=== PATIENT | male | born 1995 | race Caucasian/White ===

== ENCOUNTER 2020-09-07 12:53 | Outpatient (REF) | payer BC, SELFPAY ==
[2020-09-07 14:03] LABS: MANUAL DIFF FLAG NO
[2020-09-07 14:08] LABS: Basophils Percent Auto 0.5 % (0-2); Eosinophils Absolute Auto 0.1 X10*3/uL (0.0-0.4); Hematocrit 43.7 % (42-52); Hemoglobin 14.5 g/dl (14.0-18.0); Lymphocytes Absolute Auto 2.3 X10*3/uL (1.2-4.9); Lymphocytes Percent Auto 38.5 % (20-40); Mean Corpuscular HGB Conc 33.2 g/dl (31.0-36.0); Mean Corpuscular Hemoglobin 30.9 pg (27.0-33.0); Mean Platelet Volume 10.9 fL (9.4-12.4); Monocytes Absolute Auto 0.6 X10*3/uL (0.1-1.2); Monocytes Percent Auto 10.5 % (2-11); Neutrophils Absolute Auto 2.9 X10*3/uL (2.0-8.3); Neutrophils Percent Auto 49.5 % (45-73); Platelet Count 252 X10*3/uL (160-400); Red Cell Distribution Width 12.2 % (11.0-16.0); White Blood Count 5.9 X10*3/uL (4.8-10.8)
[2020-09-07 14:13] LABS: Glucose Urine UA NEG (NEG); Leukocyte Esterase Urine NEG (NEG); Nitrite Urine NEG (NEG); Specific Gravity - Urine >= 1.030 (1.005-1.025); Urine Blood NEG (NEG); Urine Ketones 15 MG/DL (NEG); Urine Protein 1+ MG/DL (NEG-TRACE)
[2020-09-07 14:17] LABS: Appearance Urine HAZY; Color Urine YELLOW
[2020-09-07 14:33] LABS: Alanine Aminotransferase 49 U/L (0-40); Albumin Level 4.7 g/dL (3.5-5.0); Alkaline Phosphatase 74 U/L (39-117); Anion Gap 14 (12-20); Aspartate Amino Transferase 36 U/L (5-37); Blood Urea Nitrogen 16 mg/dL (9-16); Calcium 9.4 mg/dL (8.4-10.2); Carbon Dioxide 26 mmol/L (22-29); Chloride 105 mmol/L (96-108); Estimated Glomerular Filt Rate > 60; Glucose Random 84 mg/dL (60-115); Potassium 3.8 mmol/L (3.3-5.1); Sodium 141 mmol/L (135-145); Total Protein 7.4 g/dL (6.5-8.0)
[2020-09-07 14:34] LABS: Mucus Urine 3+ /LPF; WBC Urine 0 /HPF (0-4)
== END 2020-09-07 12:54 | disposition home or self-care (01) ==
LOC: HO.HMGCLDS 12:53
PROVIDERS: PCP Nurse Practitioner Family; Visit Provider Hospitalist
DX: R82.90 Unspecified abnormal findings in urine (principal)
CPT/HCPCS: 36415; 80053; 81001; 81003; 85025

== ENCOUNTER 2020-09-15 10:11 | Outpatient (REF) | payer BC, SELFPAY ==
[2020-09-15 11:12] LABS: Glucose Urine UA NEG (NEG); Leukocyte Esterase Urine NEG (NEG); Nitrite Urine NEG (NEG); PH 6.5 (5.0-8.0); Urine Blood NEG (NEG); Urine Ketones NEG (NEG); Urine Protein NEG (NEG-TRACE)
[2020-09-15 11:14] LABS: Appearance Urine CLEAR; Color Urine YELLOW
[2020-09-15 11:43] LABS: RBC Urine 0-2 /HPF (0); WBC Urine 0-2 /HPF (0-4)
[2020-09-17 09:28] LABS: Urine Cytology See Pathology rpt
== END 2020-09-15 10:12 | disposition home or self-care (01) ==
LOC: HO.HMGCLDS 10:11
PROVIDERS: PCP Nurse Practitioner Family; Visit Provider Nurse Practitioner Family
DX: R82.90 Unspecified abnormal findings in urine (principal); R31.29 Other microscopic hematuria
CPT/HCPCS: 81001; 81003; 87086; 88112

== ENCOUNTER 2023-01-16 09:31 | Emergency (ER) | payer OTHER, SELFPAY ==
--- NOTE | ~2023-01-16 | XR_ITS ---
EXAMINATION: XR FOOT, LEFT CLINICAL INFORMATION: Injury COMPARISON: None available. TECHNIQUE: AP, lateral, and oblique views of the left foot. FINDINGS: Negative for acute fracture or dislocation. Hardware in the region of the talus is noted. XR/XR foot LT 2V IMPRESSION: No acute fracture or dislocation.
[2023-01-16 09:51] VITALS: BP 123/81; PULSE 61; RESP 18; TEMP 36.3; O2SAT 98; BMI 31.2
--- NOTE | 2023-01-16 12:54 | ED.GENADULT ---
HPI - General Adult General Chief complaint: Extremity Injury, Lower Stated complaint: L foot injury Time Seen by Provider: 01/16/23 11:41 Source: patient Mode of arrival: ambulatory Limitations: no limitations History of Present Illness HPI narrative: 27 yold male presents to the ED for left foot pain after asphallt fell unto his left foot. patient denies any head trauma, fever, trouble, trouble, or any other concerning symptoms. Related Data Previous Rx's Medication Instructions Recorded naproxen 500 mg tablet 500 mg PO BID PRN pain 7 days #14 01/16/23 tabs Allergies Allergy/AdvReac Type Severity Reaction Status Date / Time No Known Allergies Allergy Unverified 09/07/20 12:40 Review of Systems Review of Systems: LEft foot pain Yes all other systems are reviewed and are negative [facility] Social History Social History Advance Directives: No Advance Directives Information Provided: Yes Physical Exam ED Vital Signs: Vital Signs - 24 hr 01/16/23 09:51 Temperature 97.4 F Pulse Rate 61 Respiratory Rate 18 Blood Pressure 123/81 Pulse Oximetry 98 Oxygen Delivery Method Room Air BMI result Body Mass Index 31.2 Const General: cooperative, healthy appearing, comfortable, no acute distress, well developed, alert, awake and Physically active Orientation/consciousness: oriented to person, oriented to place and patient oriented x3 HENMT Head: Yes normal to inspection, Yes No palpable skull fracture present, Yes normocephalic, Yes atraumatic and No abrasion Eyes General: appearance normal, both eyes and all related structures Neck Neck: Yes normal visual inspection, Yes full ROM, Yes no lymphadenopathy, Yes no meningeal signs, Yes trachea midline, Yes supple, No anterior neck swelling and No tender Chest Chest palpation & inspection: normal inspection of the chest and normal palpation of entire chest wall Resp Effort & Inspection: normal respiratory effort and able to speak in complete sentences Cardio Jugular venous distension: no JVD Heart sounds: S1 normal heart sound present and S2 normal heart sound present GI Inspection: Yes normal to inspection and No abdominal wall ecchymosis Palpation (GI): Soft to palpation, not firm, nontender, no guarding and not rigid General: No CVA tenderness and Yes no CVA tenderness Back/Spine/Pelvis Back: no CVA tenderness, No CVA tenderness and No back tenderness Skin General skin exam: no rashes or lesions noted and elasticity normal Neuro General: oriented to person, oriented to place, patient oriented x3, gait normal, tone normal, moves all extremities, Normal light touch and pain sensation, no meningeal signs, no focal motor deficits, CN's II-XI intact bilaterally and normal sensation to monofilament Extrem General: Yes normal to inspection and Yes full ROM Ankle/foot/toe images: 1. positive for tenderness on palpation and slight ecchymosis. Negative for crepitus, deformity, erythema, Colace, or hotness. Motor/neuro/vascular exam of left lower extremity intact. Normal gait Psych Appearance: grossly normal, well kempt and not disheveled Medical Decision Making Medical Decision Making MDM Narrative: 27-year-old male presents to the ED for left foot pain after asphalt fell on his foot. Patient denies any trauma to the body of falling to the ground. Patient states no other complaints. Patient able to walk on foot. X-ray is normal and negative for any fracture. Patient educated on rice, elevation, and pain meds. Differential Diagnosis Differential Diagnoses: The differential diagnosis associated with the presentation includes ( Dislocation, fracture, cellulitis, compartment syndrome,) Independent Interpretation I performed an independent interpretation of an: Plain X-Ray Radiology Impression Discussion of test interpretation with radiology: I have reviewed the radiologist's reading. External Record Review External record reviewed: Other (Prior ED visit) Prescription Management I considered prescription management with: Pain Medication Discharge Plan Discharge Clinical Impression: Contusion of foot Patient Disposition: Home, Self-Care Instructions: Foot Contusion (ED) Additional Instructions: return to the ED immediatley for increased swelling, redness, blue discoloration, worsening pain, inability to walk, fever, chills, calf pain, chest pain, shortness of breath, or any other concerning symptoms. Pleaes follow up with PCP. Prescriptions: New naproxen 500 mg tablet 500 mg PO BID PRN (Reason: pain) 7 Days Qty: 14 0RF Referrals: [facility] [Provider Group] (left foot contusion) Stand Alone Forms: Work/School Release Interventions: ED Discharge Assessment Last Done: 01/16/23 13:24 Discharge Date/Time: 01/16/23 13:24 Print Language: Citizen Of [place]
== END 2023-01-16 13:24 | disposition home or self-care (01) ==
PROVIDERS: Emergency Provider Emergency Medicine Emergency Medical Services; PCP Nurse Practitioner Family
DX: S90.32XA Contusion of left foot, initial encounter (principal); W20.8XXA Other cause of strike by thrown, projected or falling object, initial encounter; Y93.9 Activity, unspecified; Y92.9 Unspecified place or not applicable; Y99.0 Civilian activity done for income or pay
CPT/HCPCS: 73620; 99282; 99283

== ENCOUNTER 2024-04-13 13:05 | Emergency (ER) | payer SELFPAY ==
--- NOTE | ~2024-04-13 | XR_ITS ---
EXAMINATION: XR FOOT, LEFT CLINICAL INFORMATION: injury COMPARISON: [January 16, 2023 TECHNIQUE: AP, lateral, and oblique views of the left foot. FINDINGS: Orthopedic screw in the subtalar region of the foot redemonstrated. The bones and soft tissues are normal. No fracture. Alignment is anatomic. Joint spaces are maintained. XR/XR foot LT min 3V IMPRESSION: No acute abnormality. Electronically signed by: Daquan Hernandez MD 04/13/2024 04:07 PM [facility]
[2024-04-13 14:00] VITALS: BP 129/82; PULSE 78; RESP 18; TEMP 37; O2SAT 97; BMI 31.1
--- NOTE | 2024-04-13 18:06 | ED_ITS ---
HPI - General Adult General Chief complaint: Extremity Injury, Lower Stated complaint: toe injury Time Seen by Provider: 04/13/24 17:48 Source: patient Mode of arrival: ambulatory Limitations: no limitations History of Present Illness ED Provider: Jomar Dorsey HPI narrative: 28 yold male with no pmh presenting to the ED for left great toe pain. Patient states having pain since Satruday after dresser fell on toe/foot. patient states his great toe nail was dark after injury and now its starting to get back to normal color. patient states no other trauma or complaints. Related Data Previous Rx's ?Medication ?Instructions ?Recorded naproxen 500 mg tablet 500 mg PO BID PRN pain 7 days #14 01/16/23 tabs Allergies Allergy/AdvReac Type Severity Reaction Status Date / Time No Known Allergies Allergy Verified 04/13/24 14:03 Review of Systems 2 Review of Systems: left great toe pain Yes all other systems are reviewed and are negative PMFSH Social History Social History Advance Directives: No Advance Directives Information Provided: Yes Physical Exam ED Vital Signs: Vital Signs - 24 hr 04/13/24 14:00 04/13/24 18:41 Temperature 98.6 F 98.6 F Pulse Rate 78 78 Respiratory Rate 18 18 Blood Pressure 129/82 129/82 Pulse Oximetry 97 97 Oxygen Delivery Method Room Air Room Air BMI result Body Mass Index 31.1 Const General: cooperative, healthy appearing, comfortable, no acute distress, well developed, alert, awake and Physically active Orientation/consciousness: patient oriented x3 HENMT Head: Yes normal to inspection, Yes No palpable skull fracture present, Yes normocephalic and Yes atraumatic Eyes General: appearance normal, both eyes and all related structures Neck Neck: Yes normal visual inspection, Yes full ROM, Yes no lymphadenopathy, Yes no meningeal signs, Yes trachea midline, Yes supple, No anterior neck swelling and No tender Chest Chest palpation & inspection: normal inspection of the chest and normal palpation of entire chest wall Resp Effort & Inspection: normal respiratory effort and able to speak in complete sentences Auscultation: clear to auscultation bilaterally Cardio Jugular venous distension: no JVD Heart sounds: S1 normal heart sound present and S2 normal heart sound present GI Inspection: Yes normal to inspection Palpation (GI): Soft to palpation, not firm, nontender, no guarding and not rigid General: Yes no CVA tenderness Back/Spine/Pelvis Back: no CVA tenderness and No back tenderness Skin General skin exam: no rashes or lesions noted, elasticity normal and turgor normal Neuro General: patient oriented x3, gait normal, tone normal, moves all extremities, Normal light touch and pain sensation, no meningeal signs, no focal motor deficits, CN's II-XI intact bilaterally and normal sensation to monofilament Extrem General: Yes normal to inspection, Yes full ROM and Yes capillary refill normal Ankle/foot/toe images: 2 1. resolving subungal hematoma. Mild tenderness. Negative for any gangrene, erythema, swelling, open wounds, warmth redness, or coldness. 2. Positive for tenderness on palpation. Negative for ecchymosis, swelling, erythema, deformity, crepitus, warmth, coldness, gangrene, or wounds. Rest of extremity normal. Motor/neuro/vascular exam intact Psych Appearance: grossly normal, well kempt and not disheveled Medical Decision Making Medical Decision Making MDM Narrative: 48-year-old male presents to ED for lab be told me after dresser fell on foot. X-ray negative for any fractures. Presently not suspecting any compartment syndrome, gout, cellulitis, osteomyelitis, necrotizing fasciitis, DVT, or arterial occlusion. Physical exam contusion and resolving subungual hematoma. No indication for trephination of subungual hematoma. Patient states subungual hematoma is improving. Differential Diagnosis Differential Diagnoses: The differential diagnosis associated with the presentation includes (Fracture. Dislocation) Admission/Observation Consideration of admission/observation: Escalation of care including admission/observation considered Independent Historian Clinical information obtained from an independent historian. History obtained from or confirmed by: Other (patient) External Record Review External record reviewed: Other (prior visits) Prescription Management I considered prescription management with: Pain Medication Discharge Plan Discharge Clinical Impression: Subungual hematoma of great toe, Contusion Patient Disposition: Home, Self-Care Instructions: Contusion in Adults (ED) Additional Instructions: X-ray came back negative for any fracture. Your subungual hematoma will continue to self resolve. Return to the ED for any swelling, redness, bluish black discoloration, red streaks, hotness, coldness, fever, chills, or any other concerning symptoms. Recommend follow up with primary care provider. Continue taking [id number] Motrin and Tylenol for pain. FINDINGS: Orthopedic screw in the subtalar region of the foot redemonstrated. The bones and soft tissues are normal. No fracture. Alignment is anatomic. Joint spaces are maintained. XR/XR foot LT min 3V IMPRESSION: No acute abnormality. Electronically signed by: Daquan Hernandez MD 04/13/2024 04:07 PM EST RP Prescriptions: No Action naproxen 500 mg tablet 500 mg PO BID PRN (Reason: pain) 7 Days Qty: 14 0RF Stand Alone Forms: Work/School Release Interventions: ED Discharge Assessment Last Done: 04/13/24 18:41 Discharge Date/Time: 04/13/24 18:41 Print Language: [place]
[2024-04-13 18:41] VITALS: BP 129/82; PULSE 78; RESP 18; TEMP 37; O2SAT 97
== END 2024-04-13 18:41 | disposition home or self-care (01) ==
PROVIDERS: Emergency Provider Internal Medicine; PCP Nurse Practitioner Family
DX: S90.212A Contusion of left great toe with damage to nail, initial encounter (principal); W20.8XXA Other cause of strike by thrown, projected or falling object, initial encounter; Y93.9 Activity, unspecified; Y92.009 Unspecified place in unspecified non-institutional (private) residence as the place of occurrence of the external cause; Y99.9 Unspecified external cause status
CPT/HCPCS: 73630; 99282; 99283